=== PATIENT | female | born 1980 | race Asian ===

== ENCOUNTER 2024-10-11 22:12 | Emergency (ER) | payer OTHER ==
[~2024-10-11] VITALS: Ht 157.5 cm; Wt 60.5 kg
[2024-10-12 01:30] VITALS: BP 145/95; PULSE 100; RESP 18; TEMP 98.3; O2SAT 100
[2024-10-12] MEDS ORDERED: CefTRIAXone SODIUM 1 GM/VIAL IM ONE (02:00)
[2024-10-12] MEDS ORDERED: LIDOCAINE/PF 1% 2 ML VIAL IM ONE (02:00)
[2024-10-12] MEDS ORDERED: AZITHROMYCIN 500 MG TABLET PO ONE (02:00)
[2024-10-12 03:30] LABS: APPEARANCE,URINE HAZY (CLEAR); GLUCOSE, URINE (UA) NEGATIVE (NEGATIVE); LEUKOCYTE ESTERASE ,URINE LARGE (NEGATIVE); NITRATE,URINE NEGATIVE (NEGATIVE); OCCULT BLOOD,URINE NEGATIVE (NEGATIVE); SPECIFIC GRAVITIY, URINE 1.014 (1.003-1.030)
[2024-10-12 03:54] LABS: SQUAMOUS EPITHELIAL CELL,UR Few /LPF (None Seen); URINALYSIS COMMENT Few Trichomonas seen
[2024-10-12 04:20] LABS: HCG,QUAL URINE NEGATIVE (NEGATIVE)
[2024-10-13] MEDS ORDERED: METR500 PO (17:27)
[2024-10-13] MEDS ORDERED: MICO24CM2 VG (17:45)
== END 2024-10-12 05:55 | disposition home or self-care (01) ==
LOC: EMS 22:12
DX: A64 Unspecified sexually transmitted disease (principal); F17.210 Nicotine dependence, cigarettes, uncomplicated
CPT/HCPCS: 99283; 81001; 84703; 87077; 87086; 87210; 87491; 87591; 87070; J0456; J0696; J3490; 87186